=== PATIENT | female | born 1950 | race Caucasian/White ===

== ENCOUNTER 2016-12-17 02:56 | Emergency (ER) | payer MEDICARE, OTHER ==
[2016-12-17 03:23] LABS: Hematocrit 40.5 % (37.0-47.0); Mean Cell Volume 83.5 fl (78-100); Mean Corpuscular Hemoglobin 28.9 pg (27-31); Mean Corpuscular Hgb Conc 34.6 g/dl (32-36); Mean Platelet Volume 10.5 fl (6.0-9.5); Neutrophil # 5.5 K/mm3 (1.3-6.0); Neutrophil % 69.2 % (42-75.0); Platelet Count 239 K/mm3 (150-450); Red Blood Count 4.85 M/mm3 (4.2-5.4)
--- NOTE | 2016-12-17 03:25 | ERNOTE ---
Chest Pain/Cardiac HPI Chief Complaint: Chest Pain Time Seen by Provider: 12/17/16 03:18 Source: patient Exam Limitations: no limitations Immunizations: IMMUNIZATION HX Immunizations Up to Date Yes History of Influenza Vaccine Yes Allergies/Adverse Reactions: Allergies No Known Allergies Allergy (Unverified 12/17/16 03:17) Home Medications: HOME MEDICATIONS Aspirin [Aspirin Chewable] 81 mg PO DAILY 12/17/16 [Last Taken Unknown] L.acidoph,Paracasei, B.lactis [Probiotic] 1 each PO DAILY 12/17/16 [Last Taken Unknown] Levothyroxine Sodium [Levoxyl] 100 mcg PO DAILY 12/17/16 [Last Taken Unknown] Multivitamins [Multivitamin German] 1 cap PO DAILY 12/17/16 [Last Taken Unknown] Rosuvastatin Calcium [Crestor] 20 mg PO DAILY 12/17/16 [Last Taken Unknown] Narrative: Pt has had pain in the lower chest/ upper abdomen off and on for 3-4 years. Tonight she was awakened by pain in her shoulderblades with some nausea Timing: getting worse Severity/Quality: moderate Location: shoulder, back Activities at Onset: sleep Modifying Factors - Improves: Present: nothing Associated Symptoms: Present: fever/chills, nausea Prior Chest Pain/Cardiac Workup: Reports: no prior cardiac workup Review of Systems - Review of Systems Constitutional: Present: recent illness EYE: Present: no symptoms reported ENT: Present: nose congestion - / sinus pressure for 1-2 weeks Respiratory: Present: cough Cardiology: Present: no symptoms reported Gastrointestinal/Abdominal: Present: nausea - off and on, she thinks it may be her gallbladder, constipation - 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 Has a small BM some days Genitourinary: Present: no symptoms reported Musculoskeletal: Present: no symptoms reported Skin: Present: no symptoms reported Neurological: Present: no symptoms reported Endocrine: Present: no symptoms reported Hematologic/Lymphatic: Present: no symptoms reported Psych: Present: no symptoms reported - Patient's Past Medical History Patient History - Medical: No pertinent hx Patient History - Cardiac/Respiratory: Hyperlipidemia Patient History - Cancer: No Hx of Cancer Patient History - Surgical Procedures: , Hysterectomy - Social History Living Situations: home Smoking Status: Former smoker - Immunizations Immunizations Up to Date: Yes History of Influenza Vaccine: Yes Physical Exam - Physical Exam General Appearance: Present: wd/wn, alert, mild distress Eye Exam: Normal inspection: bilateral, PERRL: bilateral Ears, Nose, Throat: Present: normal ENT inspection Neck: Present: normal inspection, nontender Respiratory: Present: no respiratory distress, normal breath sounds, lungs clear Cardiovascular/Chest: Present: regular rate, rhythm, no murmur, normal peripheral pulses Gastrointestinal/Abdominal: Present: normal bowel sounds, nontender, nondistended, soft Back Exam: Present: normal inspection, normal range of motion, other - mild tenderness left thorax Extremity Exam: Present: non-tender, normal range of motion, no edema Neurological Exam: Present: alert, oriented, normal mood/affect, no motor/ sensory deficits Skin Exam: Present: normal color, warm/dry Lymphatic Exam: Present: no adenopathy ED Progress - Results and Orders Patient's Lab Results:: I have reviewed the patient's lab results. Results and Orders: Laboratory Tests 12/17/16 12/17/16 03:18 03:18 WBC 8.0 Hgb 14.0 Hct 40.5 Plt Count 239 Sodium 139 Potassium 3.9 Chloride 103 Carbon Dioxide 25.1 Anion Gap 14.8 H BUN 22 Creatinine 1.03 Est GFR (Non-Af Amer) 57 L BUN/Creatinine Ratio 21.4 Random Glucose 127 H Calcium 8.7 Total Bilirubin 0.4 AST 50 H ALT 55 Alkaline Phosphatase 103 Troponin I 0.017 Total Protein 7.5 Albumin 3.9 Amylase 67 Lipase 223 - Vital Signs Patient's Vital Signs:: I have reviewed the patient's vital signs. Vital Signs: Vital Signs 12/17/16 03:10 Temperature 38.2 C H Pulse Rate 91 Respiratory 20 Rate Blood Pressure 140/77 O2 Sat by Pulse 97 Oximetry - EKG EKG: NSR, other - left anterior fascicular block EKG read: Interp. by me - X-Ray X-Ray #1 X-Ray: chest Interpretation: Interp. by me X-ray Comments: no acute cardiopulmonary changes X-Ray #2 X-Ray: abdomen Interpretation: Interp. by me X-ray Comments: moderate stool retention LUQ, LLQ and RLQ. No A/F levels, dilated bowel or other signs of obstruction - Progress/Reassessment Chief Complaint: Chest Pain Progress Note-Subjective: 12/17/16 04:42 discussed labs and x-ray findings and constipation. Departure - Departure Clinical Impression: Constipation Qualifiers: Constipation type: unspecified constipation type Qualified Code(s): K59.00 - Constipation, unspecified Disposition: Home Follow Up Needed Condition: Good Instructions: Constipation, Adult, [id number] Additional Instructions: Take milk of magnesia tonight or first thing in the morning. Repeat 8-12 hours later if no effect. If that doesn't work you may try Magnesium citrate which you can buy over the counter. Take a half of a bottle followed by a large glass of water. Continue miralax after getting cleaned out, once or twice a day to produce a soft formed bowel movement 4-5 times a week. Drink enough water to keep your urine pale yellow to clear. Follow up with your regular doctor to make a penitentiary plan to keep your bowels regular. Return to ER as necessary Referrals: Ita James MD [Primary Care Provider] -
--- OUTSIDE RECORDS SUMMARY | 2016-12-17 03:27 | XMS REPORT | Continuity of Care Document ---
:1950 Author Organization [facility] ([facility]) Address [address] [place] [address] Phone [phone] Care Team Providers Name Role Phone Ita James Primary Care Provider [phone] Source Comments This disclosure is being made pursuant to the Care Everywhere program, applicable federal and state laws, and may not contain all informaitonavailable regarding this patient.[facility] ([facility]) Active Allergies and Adverse Reactions Not on File Current Medications Not on file Active Problems Not on file Social History Tobacco Use Types Packs/Day Years Used Date Never Assessed Plan of Care Health Maintenance Due Date Last Done Comments HCV Screening 1950 Hepatitis B Vaccine (1 of 3 - Primary Series) 1950 Tdap Vaccine 1961 Lipid Disorder Screening 1968 Td Vaccine 1968 Mammogram 1990 Colonoscopy 07/14/2000 Zoster Vaccine 2010 Osteoporosis Screening (DXA Bone Density) 2015 Pneumococcal Vaccine (1 of 2 - PCV13) 2015 Influenza Vaccine: Seasonal (#1) 03/03/2016 Results from Last 3 Months Not on file
[2016-12-17 03:44] LABS: Albumin * 3.9 gm/dl (3.4-5.0); Anion Gap 14.8 mmol/L (6.8-13.8); BUN/Creatinine Ratio 21.4 (9.0-21.6); Bilirubin, Total 0.4 mg/dL (0.0-1.1); Ca. Corrected For Albumin 8.5 mg/dL (8.4-10.2); Calcium * 8.7 mg/dL (7.9-10.9); Carbon Dioxide 25.1 mmol/L (24-32.6); Potassium 3.9 mmol/L (3.4-4.6); Total Protein 7.5 gm/dL (6.2-8.2); Troponin I 0.017 ng/ml (0.00-0.10)
[2016-12-17] MEDS ORDERED: MAGNESIUM HYDROXIDE 30 ML UDC ONE (04:39)
[2016-12-17] MEDS ORDERED: MAGNESIUM HYDROXIDE 30 ML UDC PO ONE (04:39)
[2016-12-17 05:31] VITALS: BP 135/66
== END 2016-12-17 04:50 | disposition home or self-care (01) ==
LOC: ER 02:56
DX: K59.00 Constipation, unspecified (principal); E78.5 Hyperlipidemia, unspecified; Z87.891 Personal history of nicotine dependence

== ENCOUNTER 2017-05-11 09:54 | Day surgery (SDC) | payer MEDICARE, OTHER ==
[~2017-05-11 09:54] MED LIST: NORMAL SALINE 3 ML BOX IV PRN; RINGER'S SOLUTION,LACTATED 1,000 ML IV PRN
[2017-05-11] MEDS ORDERED: RINGER'S SOLUTION,LACTATED 1,000 ML IV ONE (10:23)
[2017-05-11] MEDS ORDERED: RINGER'S SOLUTION,LACTATED 1,000 ML IV PRN (12:10)
[2017-05-11 12:52] VITALS: BP 132/67
--- NOTE | 2017-05-12 11:18 | OR ---
Operative Report - Dictated Report Narrative: OPERATIVE REPORT DATE OF OPERATION: 05/11/2017 PREOPERATIVE DIAGNOSIS: No recent colon studies. Constipation POSTOPERATIVE DIAGNOSIS: Normal colonoscopy OPERATION: Colonoscopy SURGEON: Sylvia Jeffries MD ANESTHESIA: ATILIO Azar CRNA INDICATIONS FOR PROCEDURE: The patient is a 66-year-old female referred by Dr. James. The patient had a previous normal colonoscopy in 2005. There is no family history of colon cancer. The patient has always had trouble with constipation however has had improvement with Benefiber and MiraLAX. FINDINGS: Very capacious colon otherwise normal exam to the cecum NARRATIVE OF PROCEDURE: The patient was identified in the holding area, and prior to the administration of anesthetic, a multidisciplinary timeout was observed. With the patient in the left lateral position and after the administration of intravenous sedation, the perineum was inspected. There was no evidence of pilonidal disease or skin breakdown. The external appearance of the anus was normal. Sphincter tone was good. The flexible fiberoptic colonoscope was inserted into the rectum which was insufflated with air. The rectal mucosa and submucosal vascular pattern appeared normal, the prep was seen to be complete. The scope was advanced through the sigmoid colon, up the descending colon, and around the splenic flexure where the triangular haustral architecture of the transverse colon was seen. The scope was advanced across the transverse colon, around the hepatic flexure to the cecum, where the confluence of tenia and the ileocecal valve were identified. The mucosa at this level appeared normal. The scope was then slowly withdrawn in a circular fashion so that all aspects of colonic mucosa were inspected. The colon was very capacious and character and redundant in course requiring standard reduction maneuvers and gentle external manual compression on the abdomen to reach the cecum. The haustral architecture appeared well preserved throughout with no evidence of external compression. The mucosa and submucosal vascular pattern appeared normal, specifically there was no gross evidence to suggest colitis or inflammatory bowel disease and no AV malformations were seen. No diverticulosis was demonstrated. No polyps were encountered. The scope was gradually withdrawn to the level of the rectum. As much insufflated air as possible was removed. The scope was withdrawn from the patient and the procedure terminated. The patient tolerated the anesthetic and procedure well without complication and was transferred back to the ambulatory surgery area awake and in stable condition. The patient remained stable throughout a period of postoperative observation. She denied abdominal discomfort, was able to tolerate by mouth intake, and was up without assistance. I shared the operative findings with the patient and her and she was given copies of the photographs which appear in the medical record. She was discharged home with instructions not to engage in hazardous activity today, but may resume normal activity tomorrow, and advance diet as tolerated. She is to continue those medications as listed in the history and physical exam. She will continue Benefiber and MiraLAX RECOMMENDATION: Colon surveillance in 10 years depending upon findings and symptoms Reviewed L electronically signed
== END 2017-05-11 09:55 | disposition home or self-care (01) ==
LOC: AMB 09:54
PROVIDERS: ATTEND Surgery
PROC: 0DJD8ZZ Inspection of Lower Intestinal Tract, Via Natural or Artificial Opening Endoscopic (ICD-10-PCS; principal; 2017-05-11 12:00)
DX: Z12.11 Encounter for screening for malignant neoplasm of colon (principal); K59.00 Constipation, unspecified; E78.00 Pure hypercholesterolemia, unspecified; E03.9 Hypothyroidism, unspecified; Z87.891 Personal history of nicotine dependence; Z68.29 Body mass index [BMI] 29.0-29.9, adult